=== PATIENT | female | born 1995 | race American Indian/Alaskan Native ===

== ENCOUNTER 2017-02-23 07:42 | Emergency (ER) | payer BC ==
[2017-02-23 08:23] VITALS: BP 132/85
--- NOTE | 2017-02-23 10:02 | Emergency Department Report ---
Chief Complaint: Medical Clearance Stated Complaint: PACKING RFEMOVAL Time Seen by Provider: 02/23/17 09:09 - HPI History of Present Illness: 21-year-old female presents to ED for wound check and packing removal. She states abscess was worse about 3 days ago and packing was placed. She states she changed gauze daily. She denies any fever/chills/nausea/ abdominal pain/ chest pain or any other problems. - ROS Review of Systems: As noted in HPI Denies all other ROS - Exam Vital Signs: Vital Signs 02/23/17 08:20 Temperature 99.1 F Pulse Rate 112 H Respiratory 20 Rate Blood Pressure 132/85 Blood Pressure 132/85 [Right] O2 Sat by Pulse 100 Oximetry Physical Exam: GENERAL: Alert and oriented x3, no apparent distress, Normal Gait, atraumatic. LUNGS: Symetrical with respiration, No wheezing, no rales or crackles, CTAB. HEART: S1, S2 present, regular rate and rhythm without murmur, no rubs, no gallops. Non tender to palpation BACK: Full range of motion, no spinal tenderness, nontender to palpation. Wound located at upper mid buttock area. Wound looks clean, mildly bloody discharge. No pus discharge, no wound dehiscence, looks moderately healing. Packing in place. SKIN: Warm and dry, No lesions, No ulceration or induration present. MSE screening note: Focused history and physical exam performed. Due to findings the following was ordered: ED Medical Decision Making - Medical Decision Making 21-year-old female presents for wound check and packing removal ED course: Wound surroundings was cleaned with alcohol and wiped clean. Packing removed without any problems. No extra pus drainage from wound. Packing was cleaned and dressed sterilely with gauze I discussed the patient in follow-up with her primary care physician in 2-3 days to follow-up Vital signs are normal, patient is in no acute distress she tolerated procedure well and states she is taking her antibiotics and Motrin as prescribed ED Disposition for MSE Clinical Impression: Visit for wound check Disposition: - TO HOME OR SELFCARE Is pt being admited?: No Does the pt Need Aspirin: No Condition: Stable Instructions: Acute Wound Care (ED), Sitz Bath (GEN) Additional Instructions: Make sure to follow up with the primary care physician as discussed. Continue to Take all your medications as you've been prescribed. If you have any worsening symptoms or develop new symptoms please return to ED immediately. Referrals: PRIMARY CARE, [Primary Care Provider] - 3-5 Days Forms: Accompanied Note, Work/School Release Form(ED) Time of Disposition: 10:04
== END 2017-02-23 10:14 | disposition home or self-care (01) ==
LOC: ED 07:42
DX: Z48.00 Encounter for change or removal of nonsurgical wound dressing (principal)